=== PATIENT | male | born 1990 | race Caucasian/White ===

== ENCOUNTER 2021-03-29 07:21 | Day surgery (SDC) | payer OTHER ==
[~2021-03-29] VITALS: Ht 170.2 cm; Wt 75.0 kg
[2021-03-29] VITALS (9 sets, daily range): BP systolic 111–124; BP diastolic 58–91
[2021-03-29 08:16] LABS: HEMATOCRIT 42.8 % (39.0-50.0); HEMOGLOBIN 14.5 g/dl (14.0-18.0); IMMATURE GRANULOCYTES 1.3 % (0.0-5.0); MEAN CELL VOLUME 83.4 fL CALC (80.0-100.0); MEAN CORPUSCULAR HGB 28.3 pG CALC (26.0-32.0); MEAN CORPUSCULAR HGB CONC 33.9 g/dL CAL (32.0-36.0); NEUT# 4.47 thou/uL (1.82-7.42); RED BLOOD COUNT 5.13 mill/uL (4.70-6.10)
[2021-03-29] MEDS ORDERED: PAXIL30 MG PO (08:24)
[2021-03-29 10:11] LABS: ALBUMIN 3.6 g/dL (3.2-5.0); ALKALINE PHOSPHATASE 31 u/l (38-126); ANION GAP 10 (6-22 (CALC)); BILIRUBIN, TOTAL 0.5 mg/dL (0.0-1.4); BUN 24 mg/dL (9-20); BUN/CREATININE RATIO 26 (12-20 (CALC)); CARBON DIOXIDE 32 mmol/l (22-30); CHLORIDE 102 mmol/l (95-108); CREATININE 0.9 mg/dL (0.7-1.3); GFR > 60 ML/MIN (>=60 (CALC)); GFR FOR AFR.AMER. > 60 ML/MIN (>=60 (CALC)); POTASSIUM 4.2 mmol/l (3.5-5.1); SGOT/AST 17 u/l (17-59); SODIUM 139 mmol/l (137-146); TOTAL PROTEIN 6.2 g/dL (6.3-8.2)
[2021-03-29] MEDS ORDERED: CLONIDINE0.1 MG PO (17:15)
[2021-03-29] MEDS ORDERED: NALTREXONE50 MG PO (17:16)
[2021-03-29] MEDS ORDERED: KLONOPIN0.5 MG PO (17:16)
--- NOTE | 2021-03-29 19:25 | NUR ---
PATIENT IN ROOM LAYING ON HIS LEFT SIDE. NO SIGNS OF DISTRESS NOTED. REDNESS NOTED TO FACE. PARTITION SETTER STATED, ''HE HAD THAT WHEN THE DOCTOR AND NURSE BROUGHT HIM UP''. NO COMPLAINTS OF PAIN. WILL CONTINUE TO MONITOR. CALL LIGHT IN REACH.
--- NOTE | 2021-03-30 00:25 | NUR ---
RESTING IN BED QUIETLY. NO DISTRESS NOTED. NO COMPLAINTS VOICED AT THIS TIME. CONTINUE TO MONITOR.
[2021-03-30 03:26] VITALS: BP 118/73
--- NOTE | 2021-03-30 04:04 | NUR ---
PATIENT RESTING IN BED ON HIS BACK. NO COMPLAINTS VOICED AT THIS TIME. TAKES SIPS OF WATER AND TOLERATES WELL. BED ALARM REMAINS ACTIVE. CALL LIGHT WITHIN REACH.
--- NOTE | 2021-03-30 07:21 | NUR ---
PT RESTING IN BED, NO COMPLAINTS VOICED. ORDERED LBS OBTAINED FROM [facility], PT TOLERATED WELL. REPORT RECEIVED FROM ILANA MASON OFFGOING NURSE
--- NOTE | 2021-03-30 07:53 | NUR ---
IV SITE TO RIGHT HAND NO LONGER FLUSHING AND CAUSING PT SOME DISCOMFORT. IV SITE DISCONTINUED. PT CONTINUES TO HAVE AN IV SITE TO [facility], NO COMPLAINTS ABOUT SITE THAT REMAINS
[2021-03-30 08:00] VITALS: BP 113/64
--- NOTE | 2021-03-30 08:00 | NUR ---
assessment complate, please see documentation. pt got up and showered, redressed and is now sitting up in chair. no complaints voiced
[2021-03-30 08:06] LABS: HEMATOCRIT 43.1 % (39.0-50.0); HEMOGLOBIN 14.7 g/dl (14.0-18.0); IMMATURE GRANULOCYTES 0.4 % (0.0-5.0); MEAN CORPUSCULAR HGB 28.3 pG CALC (26.0-32.0); MEAN CORPUSCULAR HGB CONC 34.1 g/dL CAL (32.0-36.0); NEUT# 13.01 thou/uL (1.82-7.42); RED BLOOD COUNT 5.19 mill/uL (4.70-6.10)
[2021-03-30 08:32] VITALS: BP 99/55
[2021-03-30] MEDS ORDERED: KLONOPIN0.5 MG PO (09:12)
[2021-03-30 09:17] LABS: ALKALINE PHOSPHATASE 33 u/l (38-126); ANION GAP 15 (6-22 (CALC)); BUN 19 mg/dL (9-20); BUN/CREATININE RATIO 20 (12-20 (CALC)); CARBON DIOXIDE 29 mmol/l (22-30); CHLORIDE 102 mmol/l (95-108); CREATININE 0.9 mg/dL (0.7-1.3); GFR > 60 ML/MIN (>=60 (CALC)); GFR FOR AFR.AMER. > 60 ML/MIN (>=60 (CALC)); MAGNESIUM 2.6 mg/dL (1.6-2.3); POTASSIUM 4.4 mmol/l (3.5-5.1); SGOT/AST 26 u/l (17-59); SODIUM 142 mmol/l (137-146)
[2021-03-30 09:22] LABS: ALBUMIN 4.4 g/dL (3.2-5.0); BILIRUBIN, TOTAL 0.8 mg/dL (0.0-1.4); TOTAL PROTEIN 7.5 g/dL (6.3-8.2)
--- NOTE | 2021-03-30 12:00 | NUR ---
PT RESTING QUIETLY. PHYSICIAN NOTIFIED OF REQUESTED D/C, PHYSICIAN NOTIFIED PT ABOUT COMING TO GET HIM, PENDING ARRIVAL AT THIS TIME
--- NOTE | 2021-03-30 13:10 | NUR ---
pt ambulate off unit escorted by physician. pt forgot d/c packet, prescription given.
== END 2021-03-30 13:10 | disposition home or self-care (01) | DRG 897 ==
LOC: ANR 07:21 → MS2 07:33 → ANR 10:38
PROVIDERS: ATTEND Anesthesiology
DX: F11.20 Opioid dependence, uncomplicated (principal)
CPT/HCPCS: J2060; J2354